=== PATIENT | female | born 1950 | race African-American/Black ===

== ENCOUNTER → 2017-06-13 | Outpatient (CLI) | payer OTHER ==
--- NOTE | ~2017-06-13 | MY29 ---
[facility] A Service of [facility] RADIOLOGY TEXT RESULTS PATIENT: KATELIN DE LUNA LOCATION: [facility] : 52 UNIT #: [id number] AGE: [address]: Yaritza Neumann MD SEX: F ORDER DR: [id number] [facility] [address] [facility]. [place], [place] [address] [id number] O MR#: [id number] Acc #: [id number] NAME: KATELIN DE LUNA : 1950 SEX: F STUDY DATE/TIME: 06/13/2017 11:43 UNIT: [facility] ROOM: STUDY DESCRIPTION: MY OG SCREENING W/ CAD BILAT Attending Physician: Yaritza Neumann M.D. Referring Physician: Yaritza Neumann M.D. Ordering Physician: Yaritza Neumann M.D. Primary Care Physician: Yaritza Neumann M.D. MEDICAL IMAGING REPORT This report is preliminary unless electronic signature is present EXAM Bilateral digital screening mammogram with CAD, 06/13/2017 HISTORY 67-year-old female with no personal or family history of breast cancer or current complaints. COMPARISON Bilateral screening mammogram 05/03/2016, 02/26/2015, 03/04/2014. FINDINGS CC and MLO views were obtained of each breast utilizing digital technique and reviewed with an FDA-approved CAD device. Heterogeneously dense fibroglandular tissue is present bilaterally. No new or suspicious nodule, architectural distortion or cluster of microcalcification is identified. IMPRESSION Routine screening mammogram is recommended in one year. Patients over the age of 40 are entered into a reminder system with target due date for the next mammogram. A result letter will also be sent to the patient. BIRADS: 1 Negative Dictated by... Sienna Up M.D. THIS IS AN ELECTRONICALLY VERIFIED REPORT Sienna Up M.D. at 06/15/2017 8:49 AM TONG/bebeto [facility] A Service of [facility] RADIOLOGY TEXT RESULTS PATIENT: KATELIN DE LUNA [id number] [birth year] UNIT #: [id number] AGE: [address]: Yaritza Neumann MD SEX: F ORDER DR: TD: 06/13/2017 16:21 JOB #: [id number] MEDICAL IMAGING REPORT Page 1 of 1 COPY
== END | disposition home or self-care (01) ==
LOC: CWCC 06-07 12:00
DX: Z12.31 Encounter for screening mammogram for malignant neoplasm of breast (principal)
CPT/HCPCS: G0202